=== PATIENT | female | born 1970 | race Caucasian/White ===

== ENCOUNTER 2022-04-15 08:29 | Outpatient (CLI) | payer MEDICAID, SELFPAY ==
[2022-04-15 09:29] LABS: Albumin* 4.2 g/dL (3.3-5.0); Chloride* 107 mmol/L (96-114); Potassium* 4.5 mmol/L (3.6-5.1); Sodium* 141 mmol/L (135-149)
[2022-04-15 09:31] LABS: Cholesterol* 249 mg/dL (90-199); Creatinine* 0.6 mg/dL (0.5-1.5); Estimated Glomerular Filt Rate 108 ml/min
[2022-04-15 09:32] LABS: Alanine Aminotransferase* 29 U/L (4-35); Alkaline Phosphatase* 69 U/L (40-150); Aspartate Amino Transferase* 24 U/L (12-35); Bilirubin Total* 0.4 mg/dL (0.1-1.5); Blood Urea Nitrogen* 18 mg/dL (7-30); Calcium* 9.3 mg/dL (8.4-10.6); Carbon Dioxide* 30 mmol/L (20-32); Glucose* 150 mg/dL (60-115); Total Protein* 6.5 g/dL (6.0-8.3); Triglycerides* 286 mg/dL (40-149)
[2022-04-15 09:33] LABS: HDL Cholesterol* 55 mg/dL (>=50); LDL Cholesterol Calculated 137 mg/dL (<100)
== END 2022-04-15 08:30 | disposition home or self-care (01) ==
LOC: NFLDREF 08:29
PROVIDERS: PCP Family Medicine; Visit Provider Family Medicine
DX: I10 Essential (primary) hypertension (principal); Z13.6 Encounter for screening for cardiovascular disorders
CPT/HCPCS: 80053; 80061

== ENCOUNTER 2022-10-03 13:49 | Outpatient (CLI) | payer MEDICAID, SELFPAY ==
--- NOTE | 2022-10-03 14:00 | CRLHL7_ITS ---
For Patients: As a result of the Century Cures Act, medical imaging exams and procedure reports are released immediately into your electronic medical record. You may view this report before your referring provider. If you have questions, please contact your health care provider. BILATERAL SCREENING MAMMOGRAM WITH COMPUTER-AIDED DETECTION AND TOMOSYNTHESIS TECHNIQUE: CC and MLO views were obtained. These mammographic images have been obtained using full-field digital technique. These mammographic images were interpreted with the benefit of computer-aided detection. Breast Tomosynthesis was used in this interpretation. COMPARISON FILM: Baseline. FINDINGS: There are scattered areas of fibroglandular density IMPRESSION: There is no radiographic evidence for malignancy. ASSESSMENT: BI-RADS Category 2: Benign RECOMMENDATION: Routine screening mammogram in 1 year. A lay language report of this examination will be provided to the patient. Ryan Perez M.D. Diagnostic Radiologist [email or web address] ARYAN/Dictated by: Ryan Perez MD @ 10/04/2022 2:42:00 PM (Electronically Signed)
== END 2022-10-03 13:50 | disposition home or self-care (01) ==
LOC: MAMMO 13:49
PROVIDERS: PCP Family Medicine; Visit Provider Obstetrics & Gynecology
DX: Z12.31 Encounter for screening mammogram for malignant neoplasm of breast (principal)
CPT/HCPCS: 77063; 77067

== ENCOUNTER 2022-11-12 08:45 | Outpatient (CLI) | payer MEDICAID, SELFPAY | END 2022-11-12 08:46 | disposition home or self-care (01) | LOC: NFLDREF 11-13 11:08 | PROVIDERS: PCP Family Medicine; Referring Provider Family Medicine; Visit Provider Family Medicine | DX: F17.200 Nicotine dependence, unspecified, uncomplicated (principal); Z91.09 Other allergy status, other than to drugs and biological substances; E78.5 Hyperlipidemia, unspecified; E11.9 Type 2 diabetes mellitus without complications | CPT/HCPCS: 80053; 80061 ==

== ENCOUNTER 2023-02-10 08:31 | Outpatient (CLI) | payer MEDICAID, SELFPAY | END 2023-02-10 08:32 | disposition home or self-care (01) | LOC: NFLDREF 02-11 16:24 | PROVIDERS: PCP Family Medicine; Referring Provider Family Medicine; Visit Provider Family Medicine | DX: E11.9 Type 2 diabetes mellitus without complications (principal); E78.5 Hyperlipidemia, unspecified | CPT/HCPCS: 80061; 84450; 84460 ==

== ENCOUNTER 2023-05-26 08:44 | Outpatient (CLI) | payer MEDICAID, SELFPAY | END 2023-05-26 08:45 | disposition home or self-care (01) | LOC: NFLDREF 05-28 07:10 | PROVIDERS: PCP Family Medicine; Referring Provider Family Medicine; Visit Provider Family Medicine | DX: E11.9 Type 2 diabetes mellitus without complications (principal); I10 Essential (primary) hypertension; E78.5 Hyperlipidemia, unspecified | CPT/HCPCS: 80053; 80061; 82043; 82570 ==